=== PATIENT | female | born 2000 | race Hispanic/Latino ===

== ENCOUNTER 2020-09-07 11:53 | Emergency (ER) | payer MEDICARE ==
[2020-09-07] MEDS ORDERED: CLINDAMYCIN PHOS 600 MG/ 4 ML VIAL IM NR (12:45)
[2020-09-07 14:17] VITALS: BP 122/76
== END 2020-09-07 14:11 | disposition home or self-care (01) ==
LOC: ER 12:34
DX: K04.7 Periapical abscess without sinus (principal); R60.0 Localized edema; R50.9 Fever, unspecified
CPT/HCPCS: 99283